=== PATIENT | male | born 1980 | race Caucasian/White ===

== ENCOUNTER 2017-08-02 10:28 | Emergency (ER) | payer MEDICAID ==
[~2017-08-02] VITALS: Ht 188 cm; Wt 73.0 kg
[2017-08-02] MEDS ORDERED: ACETAMINOPHEN 325MG TABLET PO ONE (11:45)
[2017-08-02 12:45] VITALS: BP 111/72
== END 2017-08-02 13:45 | disposition home or self-care (01) ==
LOC: ER 12:42
DX: S90.32XA Contusion of left foot, initial encounter (principal); V03.90XA Pedestrian on foot injured in collision with car, pick-up truck or van, unspecified whether traffic or nontraffic accident, initial encounter; Y93.01 Activity, walking, marching and hiking; Y92.89 Other specified places as the place of occurrence of the external cause
CPT/HCPCS: 73630; 99284